=== PATIENT | male | born 1945 | race Caucasian/White ===

== ENCOUNTER 2020-01-25 02:22 | Outpatient (CLI) | payer MEDICARE, SELFPAY ==
[2020-01-25 19:20] LABS: SARS-CoV-2 RNA PCR Negative
== END 2020-01-25 02:23 | disposition home or self-care (01) ==
LOC: ANHCOVIDDT 02:22
PROVIDERS: PCP Internal Medicine; Visit Provider Internal Medicine Critical Care Medicine
DX: R09.89 Other specified symptoms and signs involving the circulatory and respiratory systems (principal); Z20.828 Contact with and (suspected) exposure to other viral communicable diseases
CPT/HCPCS: 87635; C9803; U0003

== ENCOUNTER 2020-05-19 02:53 | Emergency (ER) | payer MEDICARE, SELFPAY ==
--- NOTE | ~2020-05-19 | CT_ITS ---
EXAMINATION: CT abdomen pelvis w con DATE: 05/19/2020 04:28 INDICATION: Left lower quadrant abdominal pain. TECHNIQUE: Computed tomography (CT) of the abdomen and pelvis was performed with 100 mL Omnipaque-350 intravenous contrast. Automated exposure control and iterative reconstruction technique were employe d. The dose-length product was 481.80 mGy-cm. COMPARISON: None FINDINGS: Lung bases are clear. Heart size is normal. No pericardial or pleural effusion. 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 Small sliding-type hiatal hernia. 2.7 cm cyst in the left hepatic lobe with single the nearly indiscernible internal septation. Gallbladder, spleen, pancreas, bilateral adrenal glands and left kidney are norm al. 5 cm right renal cyst. There is moderate colonic diverticulosis with a sigmoid predominance. Ther e is no adjacent inflammatory change to suggest diverticulitis. Small bowel and appendix are normal. Bladder is normal. Prostatomegaly. Small fat-containing left inguinal hernia. No free intraperitoneal gas or fluid. No pathologically enlarged abdominal or pelvic lymphadenopathy. There is calcified ath erosclerosis of the aorta and many of the other arteries. Mild diverticulosis. IMPRESSION: 1. Extensive diverticulosis. 2. Prostatomegaly. 3. Small sliding-type hiatal hernia. 4. Small fat-containing left inguinal hernia. Reviewed, dictated and finalized at location A. PATIONAL THERAPIST AIDE
[2020-05-19 02:59] VITALS: BP 147/77; PULSE 78; RESP 18; TEMP 36.7; O2SAT 100
[2020-05-19 03:24] LABS: Basophils Absolute Auto 0.1 K/mm3 (0.0-0.1); Basophils Percent Auto 0.4 % (0.2-1.2); Eosinophils Absolute Auto 0.1 K/mm3 (0-0.3); Eosinophils Percent Auto 0.8 % (0-4.4); Hemoglobin 14.7 g/dL (14.0-18.0); Immature Granulocyte Absolute 0.03 K/mm3 (0.00-0.031); Immature Granulocyte Percent A 0.2 % (0-0.5); Lymphocytes Absolute Auto 1.71 K/mm3 (0.9-3.2); Lymphocytes Percent Auto 12.8 % (18.3-44.2); Mean Corpuscular Hemoglobin 30.7 pg (26-34); Mean Corpuscular Volume 87.7 fl (80-100); Mean Platelet Volume 9.1 fl (7.4-10.4); Monocytes Absolute Auto 1.2 K/mm3 (0.1-0.6); Monocytes Percent Auto 8.7 % (2.6-8.5); Neutrophils Absolute Auto 10.4 K/mm3 (1.3-6.7); Neutrophils Percent Auto 77.1 % (45.5-73.1); Platelet Count Result 263 k/mm3 (150-375); Red Blood Count 4.79 M/mm3 (4.6-6.20); Red Cell Distribution Width 11.9 % (11.5-14.5); White Blood Count 13.4 K/mm3 (4.5-10.0)
--- NOTE | 2020-05-19 03:25 | PC.NURSE ---
Pt. states he is unable to void at this time.
[2020-05-19 03:37] LABS: Alanine Aminotransferase 26 U/L (4-50); Albumin Level 4.6 g/dL (3.5-5.1); Alkaline Phosphatase 65 U/L (38-126); Anion Gap 10 mmol/L (8-16); Aspartate Amino Transferase 36 U/L (17-59); Bilirubin,Total 0.8 mg/dL (0.2-1.3); Blood Urea Nitrogen 14 mg/dL (9-20); Calcium 9.7 mg/dL (8.4-10.2); Carbon Dioxide 26 mmol/L (22-30); Chloride 103 mmol/L (98-107); Estimated Glomerular Filt Rate > 60; Glucose 100 mg/dL (75-110); Lipase 81 U/L (23-300); Potassium 3.3 mmol/L (3.4-5.0); Sodium 139 mmol/L (137-145)
--- NOTE | 2020-05-19 03:45 | PC.NURSE ---
Pt. attempted to void, unable to produce urine sample at this time.
[2020-05-19 04:00] VITALS: BP 159/70; PULSE 96; RESP 18; O2SAT 97
[2020-05-19] MEDS: SODIUM CHLORIDE 0.9% IV 1,000 ML 999 ML IV CONT (04:00)
[2020-05-19] MEDS: ONDANSETRON INJ 4 MG/2 ML VIAL IV PUSH (04:00)
--- NOTE | 2020-05-19 04:41 | ED.GENADULT ---
HPI - General Adult General Chief complaint: Abdominal Pain Stated complaint: abd pain Time Seen by Provider: 05/19/20 03:17 History of Present Illness HPI narrative: Patient is a 74-year-old gentleman who presents the emergency department with chief complaint of abdominal pain. The patient reports that he has had abdominal pain for some time was treated with antibiotics for possible diverticulitis by his primary care physician. Patient states that the pain is worse in the left lower quadrant states that he is also had problems with constipation and has not had a bowel movement in the last several days Related Data Home Medications Medication Instructions Recorded Confirmed amoxicillin-pot clavulanate tablet 05/19/20 Allergies Allergy/AdvReac Type Severity Reaction Status Date / Time No Known Allergies Allergy Verified 05/19/20 03:01 Course Course Emergency Course: CT scan of the abdomen pelvis showed severe diverticulosis without definite diverticulitis the appendix was mildly prominent and 8 mm with the patient has no tenderness in the right lower quadrant. Vital Signs Vital signs: Vital Signs Temperature 36.7 C 05/19/20 02:59 Pulse Rate 78 05/19/20 02:59 Respiratory Rate 18 05/19/20 02:59 Blood Pressure 147/77 H 05/19/20 02:59 Pulse Oximetry 100 05/19/20 02:59 Temperature 36.7 C 05/19/20 02:59 Pulse Rate 78 05/19/20 02:59 Respiratory Rate 18 05/19/20 02:59 Blood Pressure 147/77 H 05/19/20 02:59 Pulse Oximetry 100 05/19/20 02:59 Medical Decision Making Vital Signs Vital Signs: Vital Signs Temperature 36.7 C 05/19/20 02:59 Pulse Rate 78 05/19/20 02:59 Respiratory Rate 18 05/19/20 02:59 Blood Pressure 147/77 H 05/19/20 02:59 Pulse Oximetry 100 05/19/20 02:59 Temperature 36.7 C 05/19/20 02:59 Pulse Rate 78 05/19/20 02:59 Respiratory Rate 18 05/19/20 02:59 Blood Pressure 147/77 H 05/19/20 02:59 Pulse Oximetry 100 05/19/20 02:59 Lab Data Result diagrams: 05/19/20 03:07 05/19/20 03:07 Labs: Lab Results 05/19/20 05/19/20 05/19/20 Range/Units 03:07 03:07 04:52 WBC 13.4 H (4.5-10.0) K/mm3 RBC 4.79 (4.6-6.20) M/mm3 Hgb 14.7 (14.0-18.0) g/dL Hct 42.0 (42.0-52.0) % MCV 87.7 (80-100) fl MCH 30.7 (26-34) pg MCHC 35.0 (32-36) g/dl RDW 11.9 (11.5-14.5) % Plt Count 263 (150-375) k/mm3 MPV 9.1 (7.4-10.4) fl Immature Gran % (Auto) 0.2 (0-0.5) % Neut % (Auto) 77.1 H (45.5-73.1) % Lymph % (Auto) 12.8 L (18.3-44.2) % [place] % (Auto) 8.7 H (2.6-8.5) % Eos % (Auto) 0.8 (0-4.4) % Baso % (Auto) 0.4 (0.2-1.2) % Lymph # (Auto) 1.71 (0.9-3.2) K/mm3 [place] # (Auto) 1.2 H (0.1-0.6) K/mm3 Eos # (Auto) 0.1 (0-0.3) K/mm3 Baso # (Auto) 0.1 (0.0-0.1) K/mm3 Abs Immat Gran (auto) 0.03 (0.00-0.031) K/mm3 Absolute Neuts (auto) 10.4 H (1.3-6.7) K/mm3 Absolute Nucleated RBC 0.0 (0.0-0.012) K/mm3 Nucleated RBC % 0.0 (0.0-0.2) % Sodium 139 (137-145) mmol/L Potassium 3.3 L (3.4-5.0) mmol/L Chloride 103 (98-107) mmol/L Carbon Dioxide 26 (22-30) mmol/L Anion Gap 10 (8-16) mmol/L BUN 14 (9-20) mg/dL Creatinine 1.00 (0.7-1.3) mg/dL Estim Creat Clear Calc Not Reportable Estimated GFR > 60 (59 - ) Glucose 100 (75-110) mg/dL Calcium 9.7 (8.4-10.2) mg/dL Total Bilirubin 0.8 (0.2-1.3) mg/dL AST 36 (17-59) U/L ALT 26 (4-50) U/L Alkaline Phosphatase 65 (38-126) U/L Total Protein 8.0 (6.3-8.2) g/dL Albumin 4.6 (3.5-5.1) g/dL Lipase 81 (23-300) U/L Urine Color Yellow (Yellow) Urine Appearance Clear (Clear) Urine pH 9.0 (5.0-9.0) Ur Specific Wilmer 1.020 (1.001-1.035) Urine Protein 1+ H (Negative) mg/dL Urine Glucose (UA) Negative (Negative) mg/dL Urine Ketones Negative (Negative) mg/dL Ur Blood (Man)
[2020-05-19 05:04] LABS: Add Urine Microscopic? YES; Appearance Urine Clear (Clear); Bilirubin Urine Negative (Negative); Blood Urine Negative (Negative); Color Urine Yellow (Yellow); Glucose Urine UA Negative (Negative); Ketones Urine Negative (Negative); Leukocyte Esterase Ur Negative LEU/UL (Negative); Mucus Urine Rare /lpf; Nitrate Urine Negative (Negative); Protein Urine 1+ mg/dL (Negative); RBC Urine 0-2 /hpf (0-2); Squamous Epithelial Cell Urine Rare /hpf (Few); Urobilinogen Urine Negative mg/dL (<2.0); WBC Urine 0-3 /hpf
[2020-05-19 05:30] VITALS: BP 155/80; PULSE 69; RESP 12; O2SAT 98
== END 2020-05-19 05:30 | disposition home or self-care (01) ==
PROVIDERS: Emergency Provider Emergency Medicine; PCP Internal Medicine
DX: K57.90 Diverticulosis of intestine, part unspecified, without perforation or abscess without bleeding (principal); N40.0 Benign prostatic hyperplasia without lower urinary tract symptoms; K44.9 Diaphragmatic hernia without obstruction or gangrene; K40.90 Unilateral inguinal hernia, without obstruction or gangrene, not specified as recurrent
CPT/HCPCS: 36415; 74177; 80053; 81001; 83690; 85025; 96361; 96374; 99284; J2405; J7030; Q9967

== ENCOUNTER 2021-03-28 09:04 | Emergency (ER) | payer MEDICARE, SELFPAY ==
--- NOTE | ~2021-03-28 | XR_ITS ---
EXAMINATION: XR tibia fibula LT 2V INDICATION: Left lower leg pain TECHNIQUE: Two views of the left tibia and fibula are obtained on four radiographs. COMPARISON: None available FINDINGS: There is no fracture, dislocation, or subluxation. Alignment at the knee and ankle appears normal. There is mild osteoarthritis of the knee. Calcified atherosclerosis is noted. IMPRESSION: 1. No acute osseous abnormality. Reviewed, dictated and finalized at location B. ES OPERATOR
[2021-03-28 09:18] VITALS: BP 105/59; PULSE 62; RESP 16; TEMP 37.2; O2SAT 98
--- NOTE | 2021-03-28 10:05 | ED.LOWEXIN ---
HPI - Extremity Injury (Lower) General Chief Complaint: Extremity Injury, Lower Stated Complaint: left leg pain History of Present Illness HPI Narrative: This is a 75-year-old male comes in complaining of a fall states that he was in his garage fell was laid on the ground for approximately 15 minutes denies hitting his head scraped his back his bilateral knees states that his left leg and knee and ankle is having severe pain states he is only taken one Tylenol that was last night pain is severe today this happened approximately at 5:00 yesterday Related Data Home Medications Medication Instructions Recorded Confirmed aspirin 325 mg tablet,delayed 325 mg PO DAILY 07/30/20 07/30/20 release clonazepam 1 mg tablet 1 mg PO DAILY 07/30/20 07/30/20 meclizine 12.5 mg tablet 12.5 mg PO .Prn tablet 07/30/20 07/30/20 multivitamin 1 tablet PO DAILY 07/30/20 07/30/20 omega 1-gcw-jzd-fish oil 1,200 mg cap PO 07/30/20 07/30/20 (144 mg-216 mg) capsule simvastatin 40 mg tablet 40 mg PO DAILY 07/30/20 07/30/20 Allergies Allergy/AdvReac Type Severity Reaction Status Date / Time No Known Allergies Allergy Verified 03/28/21 10:21 Review of Systems Review of Systems: left leg pain All systems reviewed & are unremarkable except as noted in HPI and below PMFSH Social History Social History (Updated 07/30/20 @ 13:57 by Jen Pierre MA) Smoking status: Never smoker Alcohol intake: never Substance use: never Comments At time as signature, I have reviewed and agree with nursing past medical, social, surgical and family history. Please see nursing chart for further information. There is no relevant family history pertinent to the presenting complaint. Exam Narrative: GENERAL:Well-appearing, well-nourished, and in no acute distress. HEAD:Normocephalic EYES: PERRLA ENT: Nares clear, no rhinorrhea or epistaxis. Mucous membranes moist. CHEST: Clear to auscultation. No respiratory distress. HEART: Regular rate and rhythmNormal peripheral pulses. ABDOMEN: Soft, nontender, nondistended, normal active bowel sounds. Back abrasion on the left side EXTREMITIES: Decreased range of motion bilateral legs due to pain or pain on the left knee and ankle that has shooting pain. No edema. SKIN: Warm, dry, no rash. NEURO: No focal deficits. Alert and oriented x3. Patient complains intermittent shooting pain up to his mid muscle like spasm Course Course Emergency Course: X-ray no fractures noted Vital Signs Vital signs: Vital Signs Temperature 98.9 F 03/28/21 09:18 Pulse Rate 62 03/28/21 09:18 Respiratory Rate 16 03/28/21 09:18 Blood Pressure 105/59 L 03/28/21 09:18 Pulse Oximetry 98 03/28/21 09:18 Temperature 98.9 F 03/28/21 09:18 Pulse Rate 62 03/28/21 09:18 Respiratory Rate 16 03/28/21 09:18 Blood Pressure 105/59 L 03/28/21 09:18 Pulse Oximetry 98 03/28/21 09:18 MDM - Extremity Injury (Lower) Differential Diagnosis Differential diagnosis: Likely ankle sprain and strain, acute internal derangement of knee, fracture of femur, fracture of hip and ankle fracture Discharge Plan Discharge Clinical Impression: Leg sprain Patient Disposition: Home, Self-Care Condition: Stable Instructions: Antibiotic Form, Leg Sprain (ED), Fall Prevention (ED) Additional Instructions: Avoid weight bearing until the pain subsides. Ice to the area 20-30 minutes 4-6 times a day Elevate above heart Elastic wrap or orthopedic splint as directed for comfort for the next 5-7 days Tylenol for lesser pain Ibuprofen regularly for the next 2-3 days for the inflammation Follow up with your primary care provider if the condition is not improving within 1 week or sooner if the condition worsens with numbness, tingling, decrease sensation with weakness to seek ER. Prescriptions: New ibuprofen 600 mg tablet 600 mg PO TID PRN (Reason: fever or pain) Qty: 20 RF: 0 cyclobenzaprine 5 mg tablet 5 mg PO
== END 2021-03-28 10:35 | disposition home or self-care (01) ==
PROVIDERS: Emergency Provider Nurse Practitioner Family; PCP Internal Medicine
DX: S89.82XA Other specified injuries of left lower leg, initial encounter (principal); W19.XXXA Unspecified fall, initial encounter; Z79.82 Long term (current) use of aspirin; E78.00 Pure hypercholesterolemia, unspecified
CPT/HCPCS: 73590; 99213; G0463

== ENCOUNTER 2021-03-28 15:56 | Emergency (ER) | payer MEDICARE, SELFPAY ==
[2021-03-28 16:17] VITALS: BP 136/66; PULSE 68; RESP 18; TEMP 36.4; O2SAT 99
[2021-03-28] MEDS: MAG HYDROX/AL HYDROX/SIMETH 30 ML UDC PO (19:09)
[2021-03-28] MEDS: LIDOCAINE HCL 2% VISC SOLN 15 ML UDC 20 ML PO (19:09)
--- NOTE | 2021-03-28 19:22 | ED.ALLEREA ---
HPI - Allergic Reaction General Chief complaint: Allergic Reaction Stated complaint: felt like i have glue in throat Time Seen by Provider: 03/28/21 18:14 Source: patient History of Present Illness HPI narrative: Patient presents with concern for allergic reaction. Patient fell down yesterday was seen at an urgent care this morning and discharged home with ibuprofen and Flexeril. When he got home he took all of his medications to include the ibuprofen and Flexeril after taking all his medications he described a burning sensation in the middle of his chest he contacted the urgent care who referred him to the ER for concerns of medication reaction. Patient denied any shortness of breath rash lightheadedness dizziness nausea vomiting or diarrhea patient reports for symptoms like this he would typically take Rolaids however due to the urgent care's recommendations he has not attempted any medications. Related Data Home Medications Medication Instructions Recorded Confirmed aspirin 325 mg tablet,delayed 325 mg PO DAILY 07/30/20 03/28/21 release clonazepam 1 mg tablet 1 mg PO DAILY 07/30/20 03/28/21 meclizine 12.5 mg tablet 12.5 mg PO .Prn tablet 07/30/20 03/28/21 multivitamin 1 tablet PO DAILY 07/30/20 03/28/21 omega 7-taw-wbv-fish oil 1,200 mg 1 cap PO DAILY 07/30/20 03/28/21 (144 mg-216 mg) capsule simvastatin 40 mg tablet 40 mg PO DAILY 07/30/20 03/28/21 Allergies Allergy/AdvReac Type Severity Reaction Status Date / Time No Known Allergies Allergy Verified 03/28/21 10:21 Review of Systems Review of Systems: CONSTITUTIONAL: Denies fever, chills, or sweats. EYES: Denies visual changes, redness, or discharge. ENT: Denies rhinorrhea, congestion, sore throat, or otalgia. CARDIOVASCULAR: Denies palpitations, or edema. RESPIRATORY: Denies cough or dyspnea. GASTROINTESTINAL: Denies abdominal pain, nausea, vomiting, or diarrhea. GENITOURINARY: Denies dysuria or hematuria. SKIN: Denies rash or itching. MUSCULOSKELETAL: Denies back pain, joint pain, or myalgia. NEUROLOGIC: Denies headache, numbness, dizziness, or weakness. PSYCHIATRIC: Denies anxiety or depression. All systems reviewed & are unremarkable except as noted in HPI and below PMFSH Past Medical History Medical History (Updated 03/28/21 @ 19:26 by Edwar Lundberg MD) Leg sprain Social History Social History Smoking status: Never smoker Alcohol intake: never Substance use: never Exam Narrative: CONSTITUTIONAL: Denies fever, chills, or sweats. EYES: Denies visual changes, redness, or discharge. ENT: Denies rhinorrhea, congestion, sore throat, or otalgia. CARDIOVASCULAR: Denies chest pain, palpitations, or edema. RESPIRATORY: Denies cough or dyspnea. GASTROINTESTINAL: Denies abdominal pain, nausea, vomiting, or diarrhea. GENITOURINARY: Denies dysuria or hematuria. SKIN: Denies rash or itching. MUSCULOSKELETAL: Denies back pain, joint pain, or myalgia. NEUROLOGIC: Denies headache, numbness, dizziness, or weakness. PSYCHIATRIC: Denies anxiety or depression. Course Reevaluation(s) Reevaluation #1: Patient reports feeling much improved after GI cocktail. Patient is comfortable with outpatient plan. Date: 03/28/21 Time: 19:25 Vital Signs Vital signs: Vital Signs Temperature 36.4 C L 03/28/21 16:17 Pulse Rate 68 03/28/21 16:17 Respiratory Rate 18 03/28/21 16:17 Blood Pressure 136/66 03/28/21 16:17 Pulse Oximetry 99 03/28/21 16:17 Temperature 36.4 C L 03/28/21 16:17 Pulse Rate 68 03/28/21 16:17 Respiratory Rate 18 03/28/21 16:17 Blood Pressure 136/66 03/28/21 16:17 Pulse Oximetry 99 03/28/21 16:17 MDM - Allergic Reaction MDM Narrative Medical decision making narrative: H&P as above, vss, pt looks clinically well, exam reassuring,labs/img considered, symptomatic relief available as needed, patient was treated with GI cocktail on reevaluation pt continues to
== END 2021-03-28 19:45 | disposition home or self-care (01) ==
PROVIDERS: Emergency Provider Emergency Medicine; PCP Internal Medicine
DX: K20.90 Esophagitis, unspecified without bleeding (principal); Z79.82 Long term (current) use of aspirin
CPT/HCPCS: 73590; 99283; A9270

== ENCOUNTER 2021-05-28 14:49 | Emergency (ER) | payer MEDICARE, SELFPAY ==
--- NOTE | ~2021-05-28 | XR_ITS ---
EXAMINATION: XR hand LT min 3V INDICATION: Left hand pain TECHNIQUE: Three views of the left hand are obtained. COMPARISON: None available FINDINGS: There is no fracture, dislocation, or subluxation. Mild osteoarthritis is noted at multiple interphalangeal joints. The soft tissues are unremarkable. IMPRESSION: 1. No acute osseous abnormality. Reviewed, dictated and finalized at location F. PURIFIER SERVICER
[2021-05-28 15:10] VITALS: BP 146/68; PULSE 59; RESP 16; TEMP 35.7; O2SAT 98
--- NOTE | 2021-05-28 15:26 | ED.UPPEXIN ---
HPI - Extremity Injury (Upper) General Chief Complaint: Extremity Injury, Upper Stated Complaint: left wrist pain Time Seen by Provider: 05/28/21 15:26 Source: patient, RN notes reviewed and old records reviewed Mode of arrival: ambulatory Limitations: no limitations History of Present Illness HPI narrative: 75-year-old male presents to the [facility] with complaints of left wrist pain for the last 9 days after he fell while having a stroke. States that he was transported directly to [facility] for evaluation. Was given a clot Buster there. Tenderness to the ulnar styloid, bruising noted throughout the entire left side of his body Related Data Home Medications Medication Instructions Recorded Confirmed aspirin 325 mg tablet,delayed 325 mg PO DAILY 07/30/20 05/28/21 release meclizine 12.5 mg tablet 12.5 mg PO .Prn tablet 07/30/20 05/28/21 multivitamin 1 tablet PO DAILY 07/30/20 05/28/21 omega 0-rvg-svl-fish oil 1,200 mg 1 cap PO DAILY 07/30/20 05/28/21 (144 mg-216 mg) capsule atorvastatin 80 mg PO DAILY 05/28/21 05/28/21 escitalopram oxalate 10 mg PO DAILY 05/28/21 05/28/21 tramadol 50 mg PO DAILY 05/28/21 05/28/21 Allergies Allergy/AdvReac Type Severity Reaction Status Date / Time No Known Allergies Allergy Verified 05/28/21 15:34 Review of Systems Review of Systems: All systems reviewed & are unremarkable except as noted in HPI and below Constitutional: Constitutional: Reports no additional constitutional complaints, Denies chills and Denies fever(s) Eyes: Eyes: Reports no additional eye complaints ENT: Reports system reviewed and no additional complaints, except as documented Cardiovascular: Cardiovascular: Reports no additional cardiovascular complaints Respiratory: Respiratory: Reports no additional respiratory complaints Gastrointestinal: Gastrointestinal: Reports no additional gastrointestinal complaints Musculoskeletal: Musculoskeletal: Reports as per HPI Comments: Left wrist pain Integumentary/Breasts: Skin/Breast: Reports system reviewed and no additional complaints, except as docu Neurologic: Reports system reviewed and no additional complaints, except as documented Psychiatric: Psychiatric: Reports no additional psychiatric complaints Allergic/Immunologic: Allergic/Immunologic: Reports no additional allergic/immunologic complaints [facility] Past Medical History Medical History (Updated 05/28/21 @ 15:39 by Vickie Hughes) Leg sprain Stroke Social History Social History Smoking status: Never smoker Alcohol intake: never Substance use: never Comments At the time of my signature, I reviewed and agree with the nursing past medical, surgical, social, and family history. There is no relevant family history pertinent to the patient complaint. Exam Const: General: healthy appearing, no acute distress and alert Nutritional Appearance: well nourished Orientation/consciousness: patient oriented x3 HENMT: Head: normal to inspection Eyes: Pupils: Equal, round and reactive pupils present Neck: Neck: normal visual inspection, no lymphadenopathy and no meningeal signs Chest: Chest palpation & inspection: normal inspection of the chest Resp: Effort & Inspection: normal respiratory effort Cardio: Rate: regular rate Rhythm: regular rhythm Back/Spine/Pelvis: Back: no CVA tenderness Skin: General skin exam: normal color Rashes: no rashes Wounds: no wounds Other: Significant bruising noted, and patient states it is from when he fell 9 days ago and receiving a blood thinner due to a stroke Neuro: General: patient oriented x3, moves all extremities, no meningeal signs and no focal motor deficits Speech: normal speech Gait exam (Neuro): Normal gait present Extrem: Left upper extremity: wrist normal to inspection, tenderness and normal vascular exam Hand/finger images: 1. Tender to palpation and up through the fifth
== END 2021-05-28 15:45 | disposition home or self-care (01) ==
PROVIDERS: Emergency Provider Nurse Practitioner; PCP Internal Medicine
DX: S63.502A Unspecified sprain of left wrist, initial encounter (principal); W19.XXXA Unspecified fall, initial encounter; S60.212A Contusion of left wrist, initial encounter; Z86.73 Personal history of transient ischemic attack (TIA), and cerebral infarction without residual deficits
CPT/HCPCS: 73130; 99213; G0463

== ENCOUNTER → 2022-04-08 11:42 | Outpatient (CLI) | payer MEDICARE, SELFPAY ==
--- NOTE | ~2022-04-08 | XR_ITS ---
XR thoracic spine 3V 04/08/2022 12:11 Indication: Back pain for one year Procedure: 3 views thoracic spine Comparison: No prior studies for comparison. Findings: There is an age-indeterminate superior endplate compression deformity of T10 which is new c ompared with CT dated 05/19/2020. Status post median sternotomy for CABG. Pacemaker leads in expected position. There is mild thoracic spondylosis. Mild dextrocurvature of the thoracic spine. No paraspi nal soft tissue abnormality. Osteopenia limits evaluation for subtle nondisplaced fractures. Impression: 1: Age-indeterminate superior endplate compression deformity of T10, new since CT dated 05/19/2020. Reviewed, dictated and finalized at location A. FORMER Impression: 1: Age-indeterminate superior endplate compression deformity of T10, new since CT dated 05/19/2020.
--- NOTE | ~2022-04-08 | XR_ITS ---
XR lumbar spine min 4V DATE: 04/08/2022 12:12 INDICATION: Low back pain for one year TECHNIQUE: AP, lateral, coned lateral lumbosacral views COMPARISON: None FINDINGS: There is diffuse osteopenia. There is mild thoracolumbar levoscoliosis. There is a transitional lumbosacral vertebra. Mild degenerative disease of the lumbar spine. No fracture or bone destruction or spondylolisthesis. The lumbar pedicles are intact. The sacroiliac joints are intact. There is extensive calcification of the abdominal aorta, without evidence of aneurysm. IMPRESSION: Osteopenia Mild levoscoliosis Transitional lumbosacral vertebra Mild degenerative disc disease Reviewed, dictated and finalized at location A. RETTE INSPECTOR
== END ==
PROVIDERS: PCP Internal Medicine
DX: M85.88 Other specified disorders of bone density and structure, other site (principal); M51.36 Other intervertebral disc degeneration, lumbar region; S22.070A Wedge compression fracture of T9-T10 vertebra, initial encounter for closed fracture; X58.XXXA Exposure to other specified factors, initial encounter
CPT/HCPCS: 72072; 72110

== ENCOUNTER 2025-04-05 10:16 | Outpatient (CLI) | payer MEDICARE, SELFPAY ==
--- NOTE | ~2025-04-05 | XR_ITS ---
EXAMINATION: XR knee LT min 4V, XR knee RT min 4V DATE: 04/05/2025 10:46 INDICATION: Bilateral knee pain TECHNIQUE: 1. Weight bearing anteroposterior and Ortez, sunrise, and flexed lateral views of the right knee were obtained. 2. Weight bearing anteroposterior and Ortez, sunrise, and flexed lateral views of the left knee were obtained. COMPARISON: None. FINDINGS: Right knee: Alignment is normal. No fracture. Tricompartmental osteoarthritis at the right knee, mild at the medial and lateral compartments and moderate severity at the patellofemoral compartment. 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 No joint effusion/layering lipohemarthrosis. Vascular ca lcifications along the popliteal artery and the arteries of the proximal calf. Soft tissues are otherwise unremarkable. Left knee: Alignment is normal. No fracture. Mild tricompartmental osteoarthritis. No joint effusion/layering lipohemarthrosis. Additional vascular calcifications in the proximal left calf. Soft tissues are otherwise unremarkable. IMPRESSION: 1. Tricompartmental osteoarthritis of both knees, moderate severity at the patellofemoral compartment of the right knee and otherwise mild. Reviewed, dictated and finalized at location A. BOUND BOX MACHINE HELPER IMPRESSION: 1. Tricompartmental osteoarthritis of both knees, moderate severity at the zhong llofemoral compartment of the right knee and otherwise mild.
== END 2025-04-05 10:17 | disposition home or self-care (01) ==
LOC: MICIMG 10:23
DX: M17.0 Bilateral primary osteoarthritis of knee (principal)
CPT/HCPCS: 73564